=== PATIENT | male | born 1955 | race Caucasian/White ===

== ENCOUNTER 2019-01-30 12:44 | Day surgery (SDC) | payer OTHER ==
[~2019-01-30] VITALS: Ht 167.6 cm; Wt 85.4 kg
[2019-01-30] MEDS ORDERED: OMEPRAZOLE (14:17)
[2019-01-30] MEDS ORDERED: KEFLEX (14:17)
[2019-01-30] MEDS ORDERED: ASPIRIN (14:17)
[2019-01-30] MEDS ORDERED: FINASTERIDE (14:17)
[2019-01-30] MEDS ORDERED: CYMBALTA (14:17)
[2019-01-30] MEDS ORDERED: VIBRAMYCIN (14:17)
[2019-01-30] MEDS ORDERED: LOSARTAN (14:17)
[2019-01-30] MEDS ORDERED: TAMSULOSIN (14:17)
--- NOTE | 2019-01-30 14:27 | PREAC ---
Date/Time of Note Date/Time of Note DATE: 01/30/19 TIME: 14:26 Anesthesia Eval and Record Evaluation Time Pre-Procedure Interview DATE: 01/30/19 TIME: 14:26 Age 63 Sex male NPO: 8 hrs Preoperative diagnosis screening Planned procedure colonoscopy Past Medical History Past Medical History: Includes Cardio: HTN Psych: Depression Surgery & Anesthesia Issues No known issue Meds Anticoagulation: No Beta Karlos within 24 hr: No Reason Beta Karlos not given: Pt. not on B-Karlos Reported Medications [Aspirin] No Conflict Check 01/30/19 [Omeprazole] No Conflict Check 01/30/19 [Keflex] No Conflict Check 01/30/19 [Tamsulosin] No Conflict Check 01/30/19 [Finasteride] No Conflict Check 01/30/19 [Losartan] No Conflict Check 01/30/19 [Vibramycin] No Conflict Check 01/30/19 [Cymbalta] No Conflict Check 01/30/19 Meds reviewed: Yes Allergies Coded Allergies: No Known Allergy (Unverified , 01/30/19) Allergies Reviewed: Yes Labs/Studies Labs Reviewed: Reviewed by anesthesiologist test: N/A Pre-procedure Exam Airway: Adequate mouth opening, Adequate thyromental dist Mallampati: Mallampati III Teeth: Normal Lung: Normal Heart: Normal ASA Physical Status ASA physical status: 2 Emergency: None Pre-operative Attestations Prior to commencing anesthesia and surgery, the patient was re-evaluated, there was verification of: *The patient's identity *The results of appropriate recent lab work and preoperative vital signs *The above evaluation not changing prior to induction *Anesthetic plan, risk benefits, alternative and complications discussed with patient/family; questions answered; patient/family understands, accepts and wishes to proceed. FLORECITA BARBOZA DO Jan 30, 2019 14:27
[2019-01-30 14:30] VITALS: BP 117/71; PULSE 70; RESP 16; Ht 167.6 cm; Wt 85.4 kg
[2019-01-30] MEDS ORDERED: PROPOFOL 20 ML ONE (14:34)
[2019-01-30] MEDS ORDERED: FENTAnyl 50 MCG/ML VIAL ONE (14:34)
[2019-01-30] MEDS ORDERED: LIDOCAINE 2% (SDV) 5 ML INJ ONE (14:34)
[2019-01-30] MEDS ORDERED: MIDAZOLAM 1 MG/ML 2 ML INJ ONE (14:34)
[2019-01-30 15:32] VITALS: BP 122/71; PULSE 64; RESP 16
== END 2019-01-30 16:20 | disposition home or self-care (01) ==
LOC: GIL 12:44
PROVIDERS: ATTEND Internal Medicine Gastroenterology
DX: Z12.11 Encounter for screening for malignant neoplasm of colon (principal); D12.5 Benign neoplasm of sigmoid colon; K57.30 Diverticulosis of large intestine without perforation or abscess without bleeding; I10 Essential (primary) hypertension
CPT/HCPCS: 45380; 88305; J2250; J3010